=== PATIENT | male | born 1975 | race Caucasian/White ===

== ENCOUNTER 2020-01-05 21:56 | Emergency (ER) | payer OTHER ==
[~2020-01-05] VITALS: Ht 177.8 cm; Wt 102.1 kg
[2020-01-05] MEDS ORDERED: METFORMIN HCL500 M3 PO (22:08)
[2020-01-05 22:48] LABS: ABSOLUTE LYMPHOCYTES 0.8 thou/uL (0.8-5.3); ABSOLUTE MONOCYTES 0.4 thou/uL (0.0-1.2); ABSOLUTE NEUTROPHILS 5.9 thou/uL (1.6-8.1); BASOPHILS 0.1 %; EOSINOPHILS 0.1 %; HEMATOCRIT 45.2 % (42.0-52.0); HEMOGLOBIN 15.8 gm/dL (14.0-18.0); LYMPHOCYTES 11.7 %; MCH 28.6 pg (26.0-34.0); MCHC 34.8 g/dL (28.0-37.0); MCV 82.2 fL (80.0-100.0); MONOCYTES 6.1 %; MPV 9.1 fl. (7.2-11.1); NUCLEATED RBCS 0 /100WBC; PLATELET COUNT* 163 thou/uL (150-400); RDW-CV 13.7 % (10.5-14.5); WBC 7.2 thou/uL (4.0-11.0)
[2020-01-05 22:51] LABS: URINE BILIRUBIN NEGATIVE (Negative); URINE BLOOD NEGATIVE (Negative); URINE CLARITY CLEAR; URINE COLOR YELLOW; URINE GLUCOSE-RANDOM TRACE (Negative); URINE KETONES TRACE (Negative); URINE LEUKOCYTES-REFLEX NEGATIVE (Negative); URINE NITRITE-REFLEX NEGATIVE (Negative); URINE PROTEIN TRACE (Negative); URINE SPECIFIC GRAVITY 1.015 (1.005-1.030)
[2020-01-05 22:52] LABS: CALCIUM 8.9 mg/dL (8.5-10.1); CREATININE 0.9 mg/dL (0.6-1.3); POTASSIUM 3.9 mmol/L (3.5-5.1)
[2020-01-05 22:56] LABS: ALBUMIN 3.3 g/dL (3.4-5.0); TOTAL BILIRUBIN 0.8 mg/dL (<0.1-1.0); TOTAL PROTEIN 8.4 g/dL (6.4-8.2)
[2020-01-05 22:57] LABS: AMP/METHAMP Negative (Negative); BARBITURATES Negative (Negative); BENZODIAZEPINES Negative (Negative); COCAINE Negative (Negative); METHADONE Negative (Negative); OPIATES Negative (Negative); PCP Negative (Negative); THC Negative (Negative)
[2020-01-05] MEDS ORDERED: AZITHROMYCIN 2250 MG PO (23:49)
[2020-01-05] MEDS ORDERED: MEDROLDOSEPACK PO (23:49)
[2020-01-05] MEDS ORDERED: HYDROCODON-ACE1 EAC7 PO (23:49)
[2020-01-06 01:20] VITALS: BP 128/70
--- NOTE | 2020-01-06 16:39 | EKG ---
[place] [address] ELECTROCARDIOGRAM REPORT Name: BRUNA ROSENTHAL Room: [facility]#: [id number] Admission: 01/05/20 Attend Phys: Discharge: 01/06/20 Date of : 73 Date of Service: 01/05/202233 Report #: [id number] THIS REPORT FOR: //name// [facility] ED Test Date: 2020-01-05 Test Time: 22:34:06 Pat Name: BRUNA GIVENS Department: Room: Gender: M [employer]ator: [place] : 1975 Requested By: Khadijah Butler Order Number: [id number] MD: Paul Lucas Measurements Intervals [place] Rate: 82 P: 14 PA: 135 QRS: -36 QRSD: 98 T: 30 QT: 344 QTc: 402 Interpretive Statements Sinus rhythm Left axis deviation Baseline wander in lead(s) V2 No previous ECG available for comparison Electronically Signed On 01-06-2020 16:38:52 [employer] by Paul Lucas [email or web address] <ELECTRONICALLY SIGNED> By: Paul Lucas MD, [facility] 01/06/20 [id number] [id number] Paul Lucas MD, [facility] /EPI
== END 2020-01-06 01:20 | disposition home or self-care (01) ==
LOC: M.ERS 21:56
PROVIDERS: Personal Emergency Response Attendant
DX: U07.1 COVID-19 (principal); J12.89 Other viral pneumonia; E11.9 Type 2 diabetes mellitus without complications